=== PATIENT | male | born 1985 | race Caucasian/White ===

== ENCOUNTER 2017-05-08 13:01 | Emergency (ER) | payer SELFPAY ==
[~2017-05-08] VITALS: Ht 172.7 cm; Wt 70.0 kg
[2017-05-08 13:20] VITALS: BP 120/63; PULSE 80; RESP 16; TEMP 97.9; O2SAT 98
[2017-05-08] MEDS ORDERED: LIDOCAINE HCL 1% 20 ML VIAL INFIL ONE (16:45)
[2017-05-08] MEDS ORDERED: TRAM50 PO (17:10)
[2017-05-08] MEDS ORDERED: BACT800T5 PO (17:10)
--- NOTE | 2017-05-08 17:11 | PD ---
HPI . Abscess Chief Complaint: Skin Problem Time Seen by Provider: 15:37 Travel History International Travel<30 days: No Contact w/Intl Traveler<30days: No Traveled to known affect area: No History of Present Illness HPI This patient presents with an abscess on his right home. He states that he developed an area of irritation and swelling in the right palm approximately a week ago. He states that he did not recall getting a splinter in his hand or anything like that but it felt like a splinter so he explored the area with a needle. He was not able to find the splinter. Since that time, he has had increasing swelling in the area. He is now complaining with pain running up his arm. He has had no fever. He rates his pain 6/10. PFSH Past Medical History Medical History: Denies Significant Hx ADHD: Yes Diminished Hearing: No Tetanus Vaccination: > 5 Years Influenza Vaccination: No Past Surgical History Tonsillectomy: Yes Social History Alcohol Use: No (rarely ) Tobacco Use: Yes Substance Use: No Allergies-Medications (Allergen,Severity, Reaction): Coded Allergies: Penicillins (Verified Allergy, Unknown, rashes /anaphylactic shock , ) latex (Verified Allergy, Unknown, hives/rashes, 05/08/17) Reported Meds & Prescriptions Reported Meds & Active Scripts Active No Active Prescriptions or Reported Medications Review of Systems Except as stated in HPI: all other systems reviewed are Neg General / Constitutional: No: Fever, Chills Skin: Positive Lesions Physical Exam Narrative GENERAL: Awake and alert and in no acute distress. SKIN: Warm and dry. He has an area of induration, swelling and tenderness on the thenar eminence of the right hand. There is no redness or lymphangitis in the form. There is no palpable epitrochlear node. HEAD: Normocephalic/atraumatic. EYES: Pupils are equal. Extraocular movements are intact. NECK: Normal range of motion. RESPIRATORY: Nonlabored respirations. MUSCULOSKELETAL: Atraumatic. NEUROLOGICAL: Nonfocal. PSYCHIATRIC: Appropriate mood and affect. Data Data Last Documented VS Vital Signs Date Time Temp Pulse Resp B/P (MAP) Pulse Ox O2 Delivery O2 Flow Rate FiO2 05/08/17 13:20 97.9 80 16 120/63 (82) 98 Orders Orders Lidocaine 1% Inj (Xylocaine 1% Inj) (05/08/17 16:45) MDM Medical Decision Making Medical Screen Exam Complete: Yes Emergency Medical Condition: Yes Differential Diagnosis My differential diagnosis closed but is not limited to abscess, cyst, lipoma Narrative Course This patient presents with an area of swelling, induration and tenderness on the thenar eminence of the right hand. It has a clinical appearance of an abscess. The patient will be discharged home with prescriptions for Bactrim and Ultram. He will be instructed to soak his hands several times a day in warm Epsom salt and water. Procedures Procedure Narrative INCISION AND DRAINAGE OF ABSCESS: The area was prepped and was sterilely draped. A subcutaneous wheal of 1 % Xylocaine with epi with a total number 3 mL was used to anesthetize the area properly. A number 11 scalpel was used to make a 1-cm incision across the area of the abscess. There was no purulent drainage. The area was explored. I did not find a foreign body. Sterile dressing applied. Diagnosis Primary Impression: Abscess Patient Instructions: Abscess (ED), General Instructions Med/Other Pt SpecificInfo: Prescription(s) given Scripts Tramadol (Ultram) 50 Mg Tab 50 MG PO Q4H Y for PAIN, #12 TAB 0 Refills Prov: Traci Pearson MD 05/08/17 Sulfamethoxazole-Trimethoprim (Bactrim DS) 800-160 Mg Tab 1 TAB PO BID for Infection, #14 TAB 0 Refills Prov: Traci Pearson MD 05/08/17 Disposition: 01 DISCHARGE HOME Condition: Stable Traci Pearson MD May 08, 2017 17:11
[2017-05-08] MEDS ORDERED: LIDOCAINE HCL 1% PF 30 ML VIAL ONE (17:16)
== END 2017-05-08 17:24 | disposition home or self-care (01) ==
LOC: NEPD 13:01
DX: L02.511 Cutaneous abscess of right hand (principal)
CPT/HCPCS: 10060